=== PATIENT | female | born 1945 | race Caucasian/White ===

== ENCOUNTER → 2018-01-01 | Emergency (ER) | payer OTHER ==
[~2018-01-01] VITALS: Ht 165.1 cm; Wt 86.2 kg
[~2018-01-01] MED LIST: ALDACTONE50 MG; AMLODIPINE BES2.5 MG; ASA81 MG; CORGARD40 MG; COZAAR25 MG; FORTAMET1000 MG; GLIMEPIRIDE1 MG; SIMVASTATIN1 GM
== END | disposition home or self-care (01) ==
LOC: ER 20:21
DX: S91.351A Open bite, right foot, initial encounter (principal); W55.01XA Bitten by cat, initial encounter; Y93.89 Activity, other specified; Y92.89 Other specified places as the place of occurrence of the external cause; Y99.8 Other external cause status